=== PATIENT | male | born 1985 | race Caucasian/White ===

== ENCOUNTER 2024-12-26 13:29 | Outpatient (OUT) | payer OTHER, SELFPAY ==
--- NOTE | 2024-12-26 13:33 | US_ITS ---
The [address] [address] Patient Name: CESAR GIBSON MRN: [id number] date: 1985 Sex: M Assigned Patient Location: US Current Patient Location: US Accession/Order Number: [id number] Exam Date: 12/26/2024 14:30 Report Date: 12/26/2024 14:32 At the request of: MADINA LUKE Procedure: US scrotum Scrotal ultrasound Reason for exam: Groin pain. Comparison: none Technique: Grayscale, color Doppler and spectral Doppler images of the scrotal contents were obtained. Findings: Right testicle measures 4.7 x 3.0 x 2.4 cm. No evidence of testicular mass or microlithiasis. Normal arterial and venous Doppler waveforms. Epididymis appears unremarkable. No hydrocele. Right-sided varicocele is present. Left testicle measures 4.4 x 2.0 x 2.0 cm. No evidence of testicular mass or microlithiasis. Normal arterial and venous Doppler waveforms. Epididymis appears unremarkable. No hydrocele. Imaging the area of pain involving the right inguinal area demonstrates no suspicious abnormality. US/US scrotum Impression: No evidence of testicular mass, torsion, orchitis or epididymitis. Right varicocele. Further evaluation with CT the abdomen and pelvis is suggested. Impression dictated by: Donavan Jennings Jr., D.O.12/26/2024 2:32 PM Dictation Location: [place] [address] Electronically authenticated by: [id number] Y Date: 12/26/2024 14:32
== END 2024-12-26 13:30 | disposition home or self-care (01) ==
LOC: US 13:29
PROVIDERS: PCP Family Medicine; Visit Provider Family Medicine
DX: N45.1 Epididymitis (principal); R10.31 Right lower quadrant pain; G89.29 Other chronic pain; I86.1 Scrotal varices
CPT/HCPCS: 76870